=== PATIENT | male | born 1970 | race Caucasian/White ===

== ENCOUNTER 2020-04-03 10:35 | Emergency (ER) | payer OTHER ==
[~2020-04-03] VITALS: Ht 175.3 cm; Wt 163.3 kg
[~2020-04-03 10:35] MED LIST: APAP/CODEINE ELI5 M1 OR; BACLOFEN20 MG PO; CELEXA 20 MG TA20 M1 PO; DESYREL100 MG PO; HYDROCODON-ACE1 EAC3; INDOCIN25 MG/5 ML PO; NITROQUICK0.4 MG SL; ZPAK PO
[2020-04-03] MEDS ORDERED: GLUCOPHAGE1000 MG PO (10:50)
[2020-04-03] MEDS ORDERED: TRULICITY0.75 MG/0. SUBQ (10:50)
[2020-04-03] MEDS ORDERED: JARDIANCE10 MG PO (10:51)
[2020-04-03] MEDS ORDERED: EFFER-K 20 MEQ20 ME1 PO (10:51)
[2020-04-03] MEDS ORDERED: TORSEMIDE10 MG PO (10:51)
[2020-04-03] MEDS ORDERED: FLEXERIL PO (13:40)
[2020-04-03] MEDS ORDERED: NORCO 5-325 TA1 EAC2 PO (13:40)
[2020-04-03 13:46] VITALS: BP 142/70
== END 2020-04-03 13:47 | disposition home or self-care (01) ==
LOC: M.ERS 10:35
DX: S16.1XXA Strain of muscle, fascia and tendon at neck level, initial encounter (principal); S40.012A Contusion of left shoulder, initial encounter; S70.02XA Contusion of left hip, initial encounter; Z90.89 Acquired absence of other organs; V89.2XXA Person injured in unspecified motor-vehicle accident, traffic, initial encounter; Y93.89 Activity, other specified; Y92.89 Other specified places as the place of occurrence of the external cause; Y99.8 Other external cause status